=== PATIENT | male | born 1965 | race Caucasian/White ===

== ENCOUNTER 2020-08-02 14:05 | Observation (INO) ==
[2020-08-02] MEDS ORDERED: methylPREDNISolone 125 MG/2 ML VIAL IVP ONE (14:26)
[2020-08-02] MEDS ORDERED: 0.9 % Sodium Chloride 1,000 ML IVC ONE ×2 (14:26→17:42)
[2020-08-02] MEDS ORDERED: Ipratropium/Albuterol Neb 3 ML IH ONE (14:26)
[2020-08-02 14:59] LABS: Red Blood Count 4.55 M/mcL (4.19-5.50); White Blood Count 17.1 K/mcL (4.3-11.1)
[2020-08-02 15:00] LABS: Basophils # 0.1 K/mcL (0.0-0.2); Basophils % 0.4 %; Eosinophils # 0.5 K/mcL (0.0-0.6); Eosinophils % 3.1 %; Hematocrit 39.9 % (37.5-50.1); Hemoglobin 13.3 g/dL (12.9-16.9); Immature Granulocytes % 0.7 % (0-4); Lymphocytes # 1.8 K/mcL (0.6-4.6); Lymphocytes % 10.6 %; Mean Corpuscular HGB Conc 33.3 g/dL (31.6-35.5); Mean Corpuscular Hemoglobin 29.2 pg (28.0-33.3); Mean Corpuscular Volume 87.7 fL (83.0-100.0); Mean Platelet Volume 9.6 fL (9.4-12.4); Monocytes # 1.2 K/mcL (0.0-1.3); Monocytes % 6.7 %; Neutrophils # 13.4 K/mcL (1.6-8.9); Platelet Count 238 K/mcL (140-400); Red Cell Distribution Width 13.1 % (11.5-14.5); Segmented Neutrophils % 78.5 %
[2020-08-02] MEDS ORDERED: levoFLOXacin 500 MG TABLET PO ONE (15:09)
[2020-08-02 15:20] LABS: BUN/Creatinine Ratio 32 (6-26); Blood Urea Nitrogen 25 mg/dL (6-20); Calcium 9.1 mg/dL (8.6-10.3); Carbon Dioxide 25 mEq/L (23-29); Chloride 103 mEq/L (98-107); Glucose 118 mg/dL (70-105); Osmolality,Calculated 293 (280-300); Sodium 139 mEq/L (136-145); Troponin I < 0.03 ng/mL (< 0.04); eGFR For African Americans > 60 (> 60); eGFR For Non-African Americans > 60 (> 60)
[2020-08-02] MEDS ORDERED: Isovue-370 500 ML BOTTLE IVP ONE ×2 (16:25→18:29)
[2020-08-02] MEDS ORDERED: Ondansetron 4 MG/2 ML VIAL IVP ONE (17:42)
[2020-08-02] MEDS ORDERED: Naloxone 0.4 MG/ML INJ IVP PRN (17:43)
[2020-08-02] MEDS ORDERED: *HR* FentaNYL (PF) 100 MCG/2 ML VIAL IVP ONE (17:43)
[2020-08-02] MEDS ORDERED: Ondansetron 4 MG/2 ML VIAL IVP PRN (17:43)
[2020-08-02] MEDS ORDERED: MethylPREDNISolone 40 MG/ML VIAL IVP SCH (18:32)
[2020-08-02] MEDS ORDERED: *HR* Heparin 5,000 UNIT/ML VIAL SQ SCH (19:00)
[2020-08-02] MEDS: Ipratropium/Albuterol Neb 3 ML IH SCH ×2 (20:56→23:03)
[2020-08-02] MEDS: 0.9 % Sodium Chloride 1,000 ML IVC SCH (21:12)
[2020-08-03] MEDS: Ipratropium/Albuterol Neb 3 ML IH SCH ×3 (03:44→10:50)
[2020-08-03 04:34] LABS: Basophils % 0.1 %; Hematocrit 36.9 % (37.5-50.1); Hemoglobin 11.9 g/dL (12.9-16.9); Immature Granulocytes % 0.8 % (0-4); Lymphocytes # 0.7 K/mcL (0.6-4.6); Lymphocytes % 2.9 %; Mean Corpuscular HGB Conc 32.2 g/dL (31.6-35.5); Mean Corpuscular Hemoglobin 29.3 pg (28.0-33.3); Mean Corpuscular Volume 90.9 fL (83.0-100.0); Mean Platelet Volume 10.1 fL (9.4-12.4); Monocytes # 0.7 K/mcL (0.0-1.3); Monocytes % 2.8 %; Platelet Count 227 K/mcL (140-400); Red Blood Count 4.06 M/mcL (4.19-5.50); Red Cell Distribution Width 13.2 % (11.5-14.5); Segmented Neutrophils % 93.4 %; White Blood Count 23.5 K/mcL (4.3-11.1)
[2020-08-03 04:54] LABS: BUN/Creatinine Ratio 26 (6-26); Blood Urea Nitrogen 17 mg/dL (6-20); Calcium 8.4 mg/dL (8.6-10.3); Carbon Dioxide 19 mEq/L (23-29); Chloride 109 mEq/L (98-107); Glucose 151 mg/dL (70-105); Magnesium 2.1 mg/dL (1.6-2.6); Osmolality,Calculated 290 (280-300); Phosphorous 2.8 mg/dL (2.7-4.5); Potassium 4.2 mEq/L (3.5-5.1); Sodium 138 mEq/L (136-145); eGFR For African Americans > 60 (> 60); eGFR For Non-African Americans > 60 (> 60)
[2020-08-03 05:17] LABS: Platelet Estimate Normal (Normal)
[2020-08-03] MEDS: 0.9 % Sodium Chloride 1,000 ML IVC SCH (08:02)
[2020-08-03] MEDS ORDERED: levoFLOXacin 500 MG/100 ML 500 MG/100 ML BAG IVPB SCH (09:00)
[2020-08-03] MEDS ORDERED: Gadolinium Contrast Agent (WT Based) IV PRN (09:14)
[2020-08-03 09:44] LABS: INR 1.4
[2020-08-03] MEDS ORDERED: 0.9 % Sodium Chloride 500 ML ONE (10:52)
[2020-08-03] MEDS ORDERED: *HR* Midazolam HCl 2 MG/2 ML VIAL IVP ONE (11:07)
[2020-08-03] MEDS ORDERED: *HR* FentaNYL (PF) 100 MCG/2 ML VIAL IVP ONE (11:07)
[2020-08-03] MEDS ORDERED: Ipratropium/Albuterol Neb 3 ML IH PRN (11:16)
[2020-08-03 13:15] VITALS: BP 116/78
== END 2020-08-03 16:01 | disposition home or self-care (01) ==
LOC: 3ANU 14:05 → EMEROOARM 14:05 → 3ANU 17:45 → SUATTDRO 17:49
PROVIDERS: ADMIT Internal Medicine; ATTEND Internal Medicine